=== PATIENT | female | born 1945 | race Caucasian/White ===

== ENCOUNTER 2025-08-30 13:43 | Emergency (ER) | payer MEDICARE, OTHER, SELFPAY ==
[2025-08-30 13:44] VITALS: BP 154/80; PULSE 67; RESP 18; TEMP 36.8; O2SAT 95; BMI 33.6
--- NOTE | 2025-08-30 16:30 | RAD_ITS ---
PROCEDURE: FOOT MIN 3 VIEWS; ANKLE MIN 3 VIEWS; KNEE 4 OR MORE VIEWS 08/30/2025 REASON FOR EXAM: INJURY/PAIN TECHNIQUE: Procedure Code: RADFO; RADANK; RADKN Modality: DX Procedure: FOOT MIN 3 VIEWS; ANKLE MIN 3 VIEWS; KNEE 4 OR MORE VIEWS Laterality: Right COMPARISON: None available. FINDINGS: Bones: No visible fracture. No suspicious bone lesion. Joints: Normal alignment. Moderate degenerative changes. No appreciable ankle or knee joint effusion. Soft tissues: Soft tissues are unremarkable. RAD/Foot min 3 Views IMPRESSION: DEGENERATIVE OSTEOARTHROSIS. NO ACUTE FINDINGS. Reading [facility]
--- NOTE | 2025-08-30 16:30 | RAD_ITS ---
PROCEDURE: FOOT MIN 3 VIEWS; ANKLE MIN 3 VIEWS; KNEE 4 OR MORE VIEWS 08/30/2025 REASON FOR EXAM: INJURY/PAIN TECHNIQUE: Procedure Code: RADFO; RADANK; RADKN Modality: DX Procedure: FOOT MIN 3 VIEWS; ANKLE MIN 3 VIEWS; KNEE 4 OR MORE VIEWS Laterality: Right COMPARISON: None available. FINDINGS: Bones: No visible fracture. No suspicious bone lesion. Joints: Normal alignment. Moderate degenerative changes. No appreciable ankle or knee joint effusion. Soft tissues: Soft tissues are unremarkable. RAD/Ankle min 3 Views IMPRESSION: DEGENERATIVE OSTEOARTHROSIS. NO ACUTE FINDINGS. Reading [facility]
--- NOTE | 2025-08-30 16:30 | RAD_ITS ---
PROCEDURE: FOOT MIN 3 VIEWS; ANKLE MIN 3 VIEWS; KNEE 4 OR MORE VIEWS 08/30/2025 REASON FOR EXAM: INJURY/PAIN TECHNIQUE: Procedure Code: RADFO; RADANK; RADKN Modality: DX Procedure: FOOT MIN 3 VIEWS; ANKLE MIN 3 VIEWS; KNEE 4 OR MORE VIEWS Laterality: Right COMPARISON: None available. FINDINGS: Bones: No visible fracture. No suspicious bone lesion. Joints: Normal alignment. Moderate degenerative changes. No appreciable ankle or knee joint effusion. Soft tissues: Soft tissues are unremarkable. RAD/Knee 4 or More Views IMPRESSION: DEGENERATIVE OSTEOARTHROSIS. NO ACUTE FINDINGS. Reading [facility]
[2025-08-30] MEDS: HYDROcodone Bitartrate/Apap 5/325 Tablet PO (16:45)
--- NOTE | 2025-08-30 16:50 | EDS_ITS ---
HPI History of Present Illness Chief Complaint: Lower Extremity Injury Detail of Chief Complaint: Injury to right knee, right ankle and right foot Informant: patient Onset/Context/Timing Onset: Weeks (2 weeks ago.) Mechanism/Context: Fall Location of pain/injuries: Right Knee, Right ankle and Right foot Quality of Pain: Dull and Aching Current Severity: Mild Maximum Severity: Severe Worsened by: Palpation and certain movements Relieved by: Nothing Associated Symptoms Associated Symptoms: Negative for Parasthesias, Weakness, Loss of function, Inability to ambulate, Loss of consciousness or Amnesia Narrative Narrative: Patient is an 79-year-old woman. She had a fall 2 weeks ago. She went to the urgent care today because of pain. They recommend she come to the emergency room because she may have a DVT. Her pain is located anteriorly not posterior. Furthermore she has bruising of all of her right toes, there is bruising and swelling of the right ankle and there is bruising and swelling of her right knee anteriorly. She denies paresthesia, anesthesia or motor weakness. She denies head trauma. She is not on an anticoagulant or antithrombotic. She denies neck pain. She denies paresthesia, anesthesia or motor weakness. Prior similar symptoms: No Recent Illness[facility] Medical History Anxiety GERD (gastroesophageal reflux disease) Hypertension Home Medications ?Medication ?Instructions ?Recorded ?Last Taken ?Type hydrocodone-acetaminophen 5-325mg 1 tab PO Q6H PRN PRN Pain 3 days 08/30/25 Unkn own Rx 5mg-325mg #10 TABLETS Allergy/AdvReac Type Severity Reaction Status Date / Time adhesive tape AdvReac Rash Verified 08/30/25 13:46 Social History (Updated 08/30/25 @ 16:[address] Tay Phan MD) household members: none Smoking Status: Never smoker ROS ROS ED Eyes Eyes: Denies blurry vision or change in vision Cardiovascular Cardiovascular: Denies chest pain or palpitations Respiratory/Chest Respiratory/Chest: Denies cough or dyspnea Musculoskeletal Musculoskeletal: Reports other Details: Per HPI narrative ; Denies arthralgias or myalgias Integumentary Reports Abrasions Neurologic Neurologic: Denies headache(s), paresthesias or weakness Hematologic/Lymphatic Hematologic/Lymphatic: Denies easy bleeding or easy bruising EXAM Physical Exam Const Vital Signs: 08/30/25 13:44 Temperature 98.2 F Temperature Source Oral Pulse Rate 67 Respiratory Rate 18 Blood Pressure 154/80 H Blood Pressure Mean 104 Pulse Ox 95 Oxygen Delivery Method Room Air Positive well nourished and well developed General Appearance ED: well developed and NAD HEENT atraumatic; Negative for tenderness Nose: Negative for septum abnormal Eyes PERRL and EOMs intact bilaterally General Eye ED: Yes other Other Details: No subconjunctival hemorrhage. No nystagmus. Resp normal respiratory effort Cardio regular rhythm Rate: regular rate GI GI Narrative: There is no palpation of the right or left ilium, pubic symphysis or the right or left ischial tuberosity. There is no pain to palpation over the greater trochanter Karrick region on the right Back/Spine normal to inspection and no thoracic nor lumbar tenderness Extremity full ROM; Negative for normal to inspection Extremity Narrative: Patient is full active range of motion of the hip. She is able to extend and hold against gravity. She is able to extend her leg at the knee and hold. She has pain ovation over the left and right joint line. Varus valgus stress testing causes no discomfort. Cecelia's test was negative. Will attempt to perform modified Armando cause pain. There is no click appreciated. The patella is not ballotable. There is swelling unable to determine if there is a true effusion or not. There is discoloration and swelling of the right ankle. There is pain outpatient over the medial malleolus. Patient has bruising of all her toes. There is no pain ovation of her toes however there is pain to patient over the fifth metatarsal and over the tarsal bones predominantly dorsal side. DP pulses palpable. Capillary refill is normal. Neuro oriented x3 and CN's II-XII intact bilaterally Sensorium / Orientation: alert Motor Exam: strength 5/5 throughout Psych mental status grossly normal and thought process normal Skin Skin Narrative: Multiple bruises previously described. MDM MDM MDM Narrative Medical decision making narrative: Images of the knee, ankle and foot were obtained to rule out contusion versus fracture with respect to the foot and knee and sprain of the ankle versus fracture. Patient was administered [place]. She states her pain improved markedly. Radiography Chest X-Ray - ED: Read by ED Physician (The foot, ankle and knee images were independently reviewed interpreted by me at 1650) Diagnostic Testin. 4 view x-ray of the right knee reveals a fusion. There is arthritic changes. There is no fracture, subluxation or dislocation. 2. Three-view x-ray of the right foot was independent reviewed interpreted by me as negative. There is evidence of osteopenia. 3. Three-view x-ray of the ankle was independently reviewed interpreted by me as negative for fracture, sublease dislocation. There is evidence of osteopenia. There is no asymmetry of the mortise. Discharge Plan Triage Chief Complaint: Lower Extremity Injury ED Provider: Tay Phan Dx/Rx/DC Orders Clinical Impression: Contusion of right knee, initial encounter, Right ankle sprain, Muscle strain of right foot, Contusion of fifth toe, right, Contusion of fourth toe, right, Contusion of right great toe without damage to nail, Contusion of right lesser toe(s) without damage to nail, initial encounter, Injury due to fall Instructions: ED Contusion, Lower Extremity, ED Ankle Sprain (Adult) Prescriptions: New hydrocodone-acetaminophen 5-325 mg tablet 1 tab PO Q6H PRN PRN (Reason: Pain) 3 Days Qty: 10 0RF Primary Care Provider: ABRIL ORDOÑEZ Referrals: ABRIL ORDOÑEZ [Other] - 1 Week if not improving Print Language: Romanian Disposition Disposition: Home, Self Care
[2025-08-30 17:17] VITALS: BP 151/61; PULSE 87; RESP 18; TEMP 36.8; O2SAT 99
== END 2025-08-30 17:18 | disposition home or self-care (01) ==
PROVIDERS: Emergency Provider Emergency Medicine; Visit Provider Emergency Medicine
DX: S80.01XA Contusion of right knee, initial encounter (principal); S96.911A Strain of unspecified muscle and tendon at ankle and foot level, right foot, initial encounter; S93.401A Sprain of unspecified ligament of right ankle, initial encounter; S90.121A Contusion of right lesser toe(s) without damage to nail, initial encounter; S90.111A Contusion of right great toe without damage to nail, initial encounter; W19.XXXA Unspecified fall, initial encounter
CPT/HCPCS: 73564; 73610; 73630; 99282